=== PATIENT | male | born 1995 | race Hispanic/Latino ===

== ENCOUNTER 2022-03-18 20:09 | Emergency (ER) | payer BC, OTHER ==
[~2022-03-18] VITALS: Ht 175.3 cm; Wt 79.4 kg
[2022-03-18] MEDS ORDERED: KETOROLAC TROMETHAMINE 60 MG/2 ML VIAL IM ONE (21:15)
[2022-03-18] MEDS ORDERED: ORPHENADRINE CITRATE 30 MG/ML VIAL IM ONE (21:15)
[2022-03-18] MEDS ORDERED: NAPROSYN500 MG PO (23:25)
[2022-03-18] MEDS ORDERED: CYCLOBENZAPRINE5 MG PO (23:25)
== END 2022-03-18 23:47 | disposition home or self-care (01) ==
LOC: ER 20:18
DX: S29.012A Strain of muscle and tendon of back wall of thorax, initial encounter (principal); S39.012A Strain of muscle, fascia and tendon of lower back, initial encounter; V47.5XXA Car driver injured in collision with fixed or stationary object in traffic accident, initial encounter; Y92.89 Other specified places as the place of occurrence of the external cause
CPT/HCPCS: 71046; 72070; 72100; 99283; J1885; J2360

== ENCOUNTER 2022-03-31 14:56 | Emergency (ER) | payer BC, OTHER ==
[~2022-03-31] VITALS: Ht 175.3 cm; Wt 79.4 kg
[~2022-03-31 14:56] MED LIST: CYCLOBENZAPRINE5 MG PO; NAPROSYN500 MG PO
[2022-03-31] MEDS ORDERED: FIORICET 50-301 EACH PO (15:49)
[2022-03-31] MEDS ORDERED: PROMETHAZINE HC25 M1 PO (15:49)
[2022-03-31] MEDS: ONDANSETRON HCL 4 MG ORAL DISINTEGRATING TAB PO ONE ×2 (15:51→16:49)
[2022-03-31] MEDS: ACETAMIN/BUTALBITAL/CAFFEINE TAB PO ONE ×2 (15:51→16:49)
== END 2022-03-31 15:45 | disposition home or self-care (01) ==
LOC: ER 14:59
DX: F07.81 Postconcussional syndrome (principal); V47.5XXA Car driver injured in collision with fixed or stationary object in traffic accident, initial encounter; Y92.488 Other paved roadways as the place of occurrence of the external cause
CPT/HCPCS: 99283